=== PATIENT | male | born 1955 | race Caucasian/White ===

== ENCOUNTER 2018-05-03 20:11 | Emergency (ER) | payer MEDICAID ==
[~2018-05-03] VITALS: Ht 180.3 cm; Wt 83.9 kg
[~2018-05-03 20:11] MED LIST: CIPR500 PO; HYDHCL25 PO
[2018-05-03 21:20] LABS: Source, Urine Clean Catch
[2018-05-03 21:22] LABS: Bilirubin, Urine Neg (Neg); Blood, Urine 5+ (Neg); Glucose Qualitative, Urine Neg (Neg); Ketones, Urine Neg (Neg); Leukocyte Esterase, Urine Neg (Neg); Nitrite, Urine Neg (Neg); Protein, Urine 1+ (Neg); Specific Gravity, Urine 1.015 (1.003-1.022); Urobilinogen, Urine NORM (Normal)
[2018-05-03 21:27] LABS: Appearance, Urine Hazy (Clear); Color, Urine Yellow (P-Yellow)
[2018-05-03 21:31] LABS: Red Blood Cells, Urine TNTC /hpf (0-2); Squamous Epithelial Cells Rare /hpf (Few); White Blood Cells, Urine Not Seen /hpf (0-5)
[2018-05-03 21:34] LABS: Bacteria Not Seen /hpf
== END 2018-05-03 22:33 | disposition home or self-care (01) ==
LOC: ER 20:11
PROVIDERS: Emergency Medicine
DX: R31.9 Hematuria, unspecified (principal); Z87.891 Personal history of nicotine dependence
CPT/HCPCS: 81001; 99283

== ENCOUNTER 2022-11-13 16:09 | Inpatient (IN) | payer OTHER ==
[~2022-11-13] VITALS: Ht 182.9 cm; Wt 87.2 kg
[2022-11-13 16:42] LABS: BASOPHILS ABSOLUTE AUTO 0.06 K/mm3 (0.00-0.23); BASOPHILS PERCENT AUTO 1 % (0-2); EOSINOPHILS PERCENT AUTO 1 % (0-6); Hematocrit 42.6 % (37.0-53.0); Hemoglobin 13.8 g/dL (13.5-17.5); IMMATURE GRAN ABSOLUTE AUTO 0.04 K/mm3 (0.00-0.10); IMMATURE GRAN PERCENT AUTO 0 % (0-1); LYMPHOCYTES PERCENT AUTO 11 % (21-46); MONOCYTES ABSOLUTE AUTO 0.87 K/mm3 (0.16-1.47); MONOCYTES PERCENT AUTO 7 % (4-13); Mean Corpuscular HGB 26.2 pg (26.0-34.0); Mean Corpuscular HGB Conc 32.4 g/dL (31.5-36.5); Mean Corpuscular Volume 81 fL (80-100); Mean Platelet Volume 9.6 fL (9.1-12.4); NEUTROPHILS ABSOLUTE AUTO 9.66 K/mm3 (1.96-9.15); NEUTROPHILS PERCENT AUTO 80 % (41-73); Platelet Count 253 K/mm3 (150-400); RDW Coefficient Variation 14.2 % (11.7-14.2); RDW Standard Deviation 41.7 fL (35.1-46.3); Red Blood Cell Count 5.27 M/mm3 (4.30-5.90); White Blood Cell Count 12.03 K/mm3 (4.00-11.30)
[2022-11-13 16:59] LABS: Albumin, Blood 3.5 g/dL (3.4-5.0); Albumin/Globulin Ratio 0.9 (0.8-1.8); Bilirubin, Total 0.5 mg/dL (0.1-1.0); Bun/Creatinine Ratio 16.3 (12.0-20.0); Calcium, Blood 8.8 mg/dL (8.5-10.1); Creatinine, Blood 0.92 mg/dL (0.60-1.20); Globulin, Blood 3.7 g/dL (2.2-4.0); Potassium, Blood 3.9 mmol/L (3.5-5.5); Total Protein, Blood 7.2 g/dL (6.4-8.2)
[2022-11-13] MEDS ORDERED: ASPI81CH PO (19:05)
[2022-11-13 23:10] VITALS: BP 164/87
--- NOTE | 2022-11-13 23:30 | NUR ---
ADMIT NOTE; PT ARRIVES FROM THE ED VIA WHEELCHAIR. THE PT IS ABLE TO AMBULATE INDEPENDENTLY FROM THE WHEELCHAIR TO THE HOSPITAL BED. THE PT IS AXO X4, ON ROOM AIR, NO OBVIOUS SIGNS OF DISTRESS. THE PT REPORTS MILD EPIGASTRIC PAIN, BUT STATES THE PAIN IS NOT SIGNIFICANT ENOUGH HE FEELS LIKE HE NEEDS TO BE MEDICATED FOR IT. THE PT DENIES ANY SOB, CHEST PAIN/PRESSURE WELL NUMBNESS/TINGLING. THE PT HAS NO FURTHER COMPLAINTS AT TIME OF ADMIT.
--- NOTE | 2022-11-14 04:03 | NUR ---
SHIFT SUMMARY; NO ACUTE CHANGES OVERNIGHT. THE PT IS AXO X4 AND INDEPENDENT IN THE ROOM. THE PT HAS BEEN NPO SINCE ADMIT IN PREPERATION FOR POSSIBLE SURGERY. THE PT REPORTS EPIGASTRIC PAIN, BUT DENIES THE NEED FOR ANY PAIN MEDICATION. TELE IS IN PLACE-NSR IN THE 60'S. THE PT DENIES ANY CHEST PAIN/PRESSURE, N/V, SOB, OR NUMBNESS/TINGLING.CURRENTLY THE PT IS SLEEPING IN BED WITH THE BED IN THE LOWEST POSITION AND THE CALL LIGHT AT BEDSIDE.
[2022-11-14 05:33] LABS: BASOPHILS ABSOLUTE AUTO 0.03 K/mm3 (0.00-0.23); BASOPHILS PERCENT AUTO 0 % (0-2); EOSINOPHILS ABSOLUTE AUTO 0.13 K/mm3 (0.00-0.68); EOSINOPHILS PERCENT AUTO 1 % (0-6); Hematocrit 40.2 % (37.0-53.0); Hemoglobin 12.7 g/dL (13.5-17.5); IMMATURE GRAN ABSOLUTE AUTO 0.03 K/mm3 (0.00-0.10); IMMATURE GRAN PERCENT AUTO 0 % (0-1); LYMPHOCYTES ABSOLUTE AUTO 1.83 K/mm3 (0.84-5.20); LYMPHOCYTES PERCENT AUTO 19 % (21-46); MONOCYTES ABSOLUTE AUTO 0.66 K/mm3 (0.16-1.47); MONOCYTES PERCENT AUTO 7 % (4-13); Mean Corpuscular HGB 25.8 pg (26.0-34.0); Mean Corpuscular HGB Conc 31.6 g/dL (31.5-36.5); Mean Corpuscular Volume 82 fL (80-100); Mean Platelet Volume 9.8 fL (9.1-12.4); NEUTROPHILS ABSOLUTE AUTO 6.79 K/mm3 (1.96-9.15); NEUTROPHILS PERCENT AUTO 72 % (41-73); Platelet Count 224 K/mm3 (150-400); RDW Coefficient Variation 14.4 % (11.7-14.2); RDW Standard Deviation 42.4 fL (35.1-46.3); Red Blood Cell Count 4.93 M/mm3 (4.30-5.90); White Blood Cell Count 9.47 K/mm3 (4.00-11.30)
[2022-11-14 05:38] VITALS: BP 145/80
[2022-11-14 06:04] LABS: Alanine Aminotransfer (ALT/SGP 251 U/L (12-78); Albumin, Blood 3.1 g/dL (3.4-5.0); Alk Phos 116 U/L (50-136); Anion Gap 6 mmol/L (6-16); Aspartate Aminotrans (AST/SGOT 218 U/L (12-37); Bilirubin, Total 0.5 mg/dL (0.1-1.0); Blood Urea Nitrogen 12 mg/dL (8-24); Bun/Creatinine Ratio 13.5 (12.0-20.0); CO2, Blood 26 mmol/L (21-32); Calcium, Blood 8.5 mg/dL (8.5-10.1); Chloride, Blood 110 mmol/L (98-108); Cholesterol 192 mg/dL (50-200); Creatinine, Blood 0.89 mg/dL (0.60-1.20); Glomerular Filtration Rate 96 (60-); Glucose, Blood 103 mg/dL (70-99); HDL Cholesterol 63 mg/dL (>39); LDL/HDL RATIO 1.8; Low Density Lipoprotein Chol 112 mg/dL (0-110); Potassium, Blood 3.8 mmol/L (3.5-5.5); Sodium, Blood 142 mmol/L (136-145); Total Protein, Blood 6.1 g/dL (6.4-8.2); Triglycerides 85 mg/dL (30-160); Very Low Density Lipoprot Chol 17 mg/dL (6-32)
[2022-11-14 08:26] VITALS: BP 150/81
[2022-11-14 15:42] VITALS: BP 149/79
--- NOTE | 2022-11-14 17:59 | NUR ---
SHIFT SUMMARY: PT COMPLAINED OF HEADACHE DUE TO NO CAFFIENE TODAY BUT REFUSED ANY MEDICATION PER MAR. HE IS IND IN ROOM AND CALLS APPROPRIATELY FOR NEEDS. PT CAN HAVE WATER UNTIL MIDNIGHT AND THEN NEEDS TO BE NPO FOR IMAGING TOMORROW. PT EDUCATED ON PLAN OF CARE AND STATES UNDERSTANDING. HE IS RESTING IN BED WITH NO CURRENT NEEDS OR COMPLAINTS.
[2022-11-14 19:12] VITALS: BP 142/76
[2022-11-15 04:57] VITALS: BP 156/80
[2022-11-15 05:35] LABS: BASOPHILS ABSOLUTE AUTO 0.03 K/mm3 (0.00-0.23); BASOPHILS PERCENT AUTO 0 % (0-2); EOSINOPHILS ABSOLUTE AUTO 0.05 K/mm3 (0.00-0.68); EOSINOPHILS PERCENT AUTO 1 % (0-6); Hematocrit 41.4 % (37.0-53.0); Hemoglobin 12.9 g/dL (13.5-17.5); IMMATURE GRAN ABSOLUTE AUTO 0.02 K/mm3 (0.00-0.10); IMMATURE GRAN PERCENT AUTO 0 % (0-1); LYMPHOCYTES ABSOLUTE AUTO 1.55 K/mm3 (0.84-5.20); LYMPHOCYTES PERCENT AUTO 17 % (21-46); MONOCYTES ABSOLUTE AUTO 0.47 K/mm3 (0.16-1.47); MONOCYTES PERCENT AUTO 5 % (4-13); Mean Corpuscular HGB 25.7 pg (26.0-34.0); Mean Corpuscular HGB Conc 31.2 g/dL (31.5-36.5); Mean Corpuscular Volume 83 fL (80-100); NEUTROPHILS ABSOLUTE AUTO 6.83 K/mm3 (1.96-9.15); NEUTROPHILS PERCENT AUTO 76 % (41-73); Platelet Count 220 K/mm3 (150-400); RDW Coefficient Variation 14.6 % (11.7-14.2); RDW Standard Deviation 43.9 fL (35.1-46.3); Red Blood Cell Count 5.01 M/mm3 (4.30-5.90); White Blood Cell Count 8.95 K/mm3 (4.00-11.30)
[2022-11-15 06:20] LABS: Albumin/Globulin Ratio 0.9 (0.8-1.8); Bilirubin, Total 0.8 mg/dL (0.1-1.0); Bun/Creatinine Ratio 13.9 (12.0-20.0); Calcium, Blood 8.4 mg/dL (8.5-10.1); Creatinine, Blood 0.86 mg/dL (0.60-1.20); Globulin, Blood 3.3 g/dL (2.2-4.0); Potassium, Blood 3.6 mmol/L (3.5-5.5); Total Protein, Blood 6.3 g/dL (6.4-8.2)
--- NOTE | 2022-11-15 06:55 | NUR ---
SHIFT SUMMARY: PATIENT A&O X 3 ABLE TO MAKE NEEDS KNOWN. NPO AFTER MIDNIGHT FOR IMAGING TODAY. HE CONTINUES ON ABX AND NO FURTHER REPORTED NAUSEA FOLLOWING EMESIS IN THE EVENING. HE IS ABLE TO AMBULATE IN ROOM AND USES BATHROOM WITHOUT ASSISTANCE. HE DENIES ANY CHEST PAIN OR DISCOMFORT. NO SOB REPORTED. CALL LIGHT WITHIN REACH.
[2022-11-15 08:49] VITALS: BP 162/86
[2022-11-15 09:10] LABS: HBSAG SCREEN Negative (Negative); HCV AB Non Reactive (Non Reactive); HEP A AB, IGM Negative (Negative); HEP B CORE AB, IGM Negative (Negative)
[2022-11-15 16:10] VITALS: BP 150/80
--- NOTE | 2022-11-15 18:29 | NUR ---
SHIFT SUMMARY: PT A&O X4. PT VERY PLEASANT AND COOPERATIVE WITH ALL CARE. PT INDEPENDENT IN ROOM AND HAS WALKED THE HALLWAYS SEVERAL TIMES THIS SHIFT. PT WENT FOR HEPATOBILIARY SCAN EARLY THIS SHIFT. RESULTS IN CHART. PT DIET INCREASED TO CLEAR LIQUID. PT TOLERATING WELL. PT C/O SLIGHT NAUSEA ONCE THIS AM. MEDICATED PER EMAR. TELE D/C. IV ABX D/C. CALL LIGHT IN REACH. BED IN LOWEST POSITION. WILL CONTINUE TO MONITOR.
[2022-11-15 19:04] VITALS: BP 145/78
--- NOTE | 2022-11-16 04:14 | NUR ---
SHIFT SUMMARY: A&O X 4, ABLE TO MAKE NEEDS KNOWN. UP AMBULATING HALLWAYS WITH NO COMPLAINTS OF CHEST PAIN OR SOB. RESPIRATIONS EVEN UNLABORED, NO COUGH. BOWEL TONES PRESENT ALL 4 QUADRANTS, FAIR APPETITE. NO EMESIS OR NAUSEA THIS SHIFT. PERIPHERAL IV FLUSHING WELL. CALL LIGHT WITHIN REACH.
[2022-11-16 04:39] VITALS: BP 128/70
[2022-11-16 05:49] LABS: Albumin, Blood 2.8 g/dL (3.4-5.0); Albumin/Globulin Ratio 0.8 (0.8-1.8); Bilirubin, Total 0.7 mg/dL (0.1-1.0); Bun/Creatinine Ratio 9.3 (12.0-20.0); Calcium, Blood 8.3 mg/dL (8.5-10.1); Creatinine, Blood 0.97 mg/dL (0.60-1.20); Globulin, Blood 3.4 g/dL (2.2-4.0); Potassium, Blood 3.5 mmol/L (3.5-5.5); Total Protein, Blood 6.2 g/dL (6.4-8.2)
[2022-11-16 08:03] VITALS: BP 148/74
[2022-11-16] MEDS ORDERED: CREON DR 12,001 EACH PO (14:06)
--- NOTE | 2022-11-16 15:01 | NUR ---
PATIENT DISCHARGED TO HOME ACCOMPANIED BY HIS COUSIN. IV SALINE LOCK REMOVED WITHOUT INCIDENT. VERBALIZED UNDERSTANDING OF D/C INSTRUCTIONS. OFF UNIT VIA W/C AT 1500. NO PERSONALBELONGINGS LEFT BEHIND IN ROOM.
== END 2022-11-16 15:00 | disposition home or self-care (01) | DRG 439 ==
LOC: ER 16:09 → MEDS 22:00 → ENPENDDIS 11-16 13:17 → MEDS 11-16 15:00
PROVIDERS: Family Medicine; Student in an Organized Health Care Education/Training Program; ADMIT Internal Medicine
DX: K85.90 Acute pancreatitis without necrosis or infection, unspecified (principal); K81.0 Acute cholecystitis; R74.8 Abnormal levels of other serum enzymes; D63.8 Anemia in other chronic diseases classified elsewhere; Z87.891 Personal history of nicotine dependence; Z79.82 Long term (current) use of aspirin; Z79.899 Other long term (current) drug therapy; Z98.890 Other specified postprocedural states
CPT/HCPCS: 36415; 71046; 74181; 76705; 78226; 80053; 80061; 80074; 83690; 84484; 85025; 93005; 93010; 96365; 96375; 99285-25; A9537; J1650; J2405; J2543; J7050; J7120

== ENCOUNTER 2023-03-06 21:46 | Emergency (ER) | payer OTHER ==
[~2023-03-06] VITALS: Ht 180.3 cm; Wt 84.8 kg
[~2023-03-06 21:46] MED LIST changes: +ASPI81CH PO; +CREON DR 12,001 EACH PO
[2023-03-06 21:57] VITALS: BP 174/89
[2023-03-06 22:26] LABS: Source, Urine Clean Catch
[2023-03-06 22:32] LABS: Bilirubin, Urine Neg (Neg); Blood, Urine 1+ (Neg); Glucose Qualitative, Urine Neg (Neg); Ketones, Urine Neg (Neg); Leukocyte Esterase, Urine Neg (Neg); Nitrite, Urine Neg (Neg); Protein, Urine Neg (Neg); Urobilinogen, Urine NORM (Normal)
[2023-03-06 22:43] LABS: Appearance, Urine Clear (Clear); Color, Urine Yellow (P-Yellow)
[2023-03-06 22:44] LABS: Bacteria Not Seen /hpf; Red Blood Cells, Urine 0-2 /hpf (0-2); Squamous Epithelial Cells Not Seen /hpf (Few); White Blood Cells, Urine Not Seen /hpf (0-5)
== END 2023-03-07 00:36 | disposition home or self-care (01) ==
LOC: ER 21:46
PROVIDERS: Emergency Medicine
DX: K40.90 Unilateral inguinal hernia, without obstruction or gangrene, not specified as recurrent (principal); Z87.891 Personal history of nicotine dependence
CPT/HCPCS: 81001; 99283